=== PATIENT | female | born 1980 | race Hispanic/Latino ===

== ENCOUNTER 2018-07-02 08:18 | Outpatient (CLI) | payer OTHER ==
--- NOTE | 2018-07-02 10:33 | ULT ---
PELVIC UTLRASOUND WITH DOPPLER: (transabdominal, transvaginal, loius scale, color Doppler, and spectral Doppler) HISTORY: Right side pelvic pain. FINDINGS: The uterus measures 9.5 x 6.7 x 4.3 cm without mass or endometrial fluid. The endometrium measures 1 1 mm in thickness. The right ovary measures 3.2 x 2.7 x 2.1 cm and the left ovary measures 3.8 x 3.1 x 3.1 cm. Flow is demonstrated to both ovaries. There is a 2.2 cm cyst in the left ovary. No free fluid is seen in th e cul-de-sac. IMPRESSION: Unremarkable exam. POS: [facility]
== END 2018-07-02 08:19 | disposition home or self-care (01) ==
LOC: SCSULT 08:18
PROVIDERS: ATTEND Nurse Practitioner
DX: R10.2 Pelvic and perineal pain (principal)
CPT/HCPCS: 76856